=== PATIENT | female | born 1990 | race Caucasian/White ===

== ENCOUNTER 2018-10-12 01:36 | Emergency (ER) | payer SELFPAY ==
[2018-10-12 02:16] LABS: Basophils % (Auto) 0.3 % (0.0-1.8); Eosinophils # (Auto) 0.1 K/mm3 (0.0-0.4); Lymphocytes # (Auto) 1.3 K/mm3 (1.2-5.4); Lymphocytes % (Auto) 12.8 % (13.4-35.0); Mean Corpuscular HGB Conc 37 % (30-34); Mean Corpuscular Volume 91 fl (79-97); Monocytes # (Auto) 0.6 K/mm3 (0.0-0.8); Monocytes % (Auto) 6.1 % (0.0-7.3); Platelet Count 197 K/mm3 (140-440); Red Blood Count 4.09 M/mm3 (3.65-5.03); Red Cell Distribution Width 13.4 % (13.2-15.2)
[2018-10-12 02:20] LABS: Hematocrit 37.2 % (30.3-42.9); Hemoglobin 13.7 gm/dl (10.1-14.3)
[2018-10-12 02:33] LABS: Bacteria,Urine 1+ /HPF (Negative); Bilirubin,Urine NEG (Negative); Blood,Urine LG (Negative); Color,Urine Yellow (Yellow); Mucus,Urine FEW /HPF; RBC,Urine > 182.0 /HPF (0.0-6.0); Urobilinogen,Urine < 2.0 mg/dL (<2.0)
[2018-10-12] MEDS ORDERED: TYLENOL PO ONE (02:52)
[2018-10-12] MEDS ORDERED: BACTRIM DS PO ONE (02:54)
--- NOTE | 2018-10-12 02:54 | Ultrasound Report ---
US OB <= 14 weeks fetus, US OB transvaginal INDICATION / CLINICAL INFORMATION: vaginal bleeding. COMPARISON: None available. FINDINGS: A single live fetus of approximately 11 weeks 1 day gestational age is seen in the uterus. A small soemrs bchorionic bleed is seen in the placenta. heart rate is 170. A small left-sided ovarian cyst is present. The right ovary is normal. A small amount of fluid is seen in the cervix. IMPRESSION: Single live fetus of approximately 11 weeks 1 day gestational age in the uterus with heart rate 170. A small subchorionic hemorrhage is seen. There is some fluid seen in the cervix. A small left o varian cyst is present. Signer Name: Josep Campo MD FACR Signed: 10/12/2018 2:50 AM Workstation Name: [id number]
--- NOTE | 2018-10-12 02:54 | Ultrasound Report ---
US OB <= 14 weeks fetus, US OB transvaginal INDICATION / CLINICAL INFORMATION: vaginal bleeding. COMPARISON: None available. FINDINGS: A single live fetus of approximately 11 weeks 1 day gestational age is seen in the uterus. A small somers bchorionic bleed is seen in the placenta. heart rate is 170. A small left-sided ovarian cyst is present. The right ovary is normal. A small amount of fluid is seen in the cervix. IMPRESSION: Single live fetus of approximately 11 weeks 1 day gestational age in the uterus with heart rate 170. A small subchorionic hemorrhage is seen. There is some fluid seen in the cervix. A small left o varian cyst is present. Signer Name: Josep Campo MD FACR Signed: 10/12/2018 2:50 AM Workstation Name: [id number]
--- NOTE | 2018-10-12 03:03 | Emergency Department Report ---
ED Female HPI - General Chief complaint: Vaginal Bleeding Stated complaint: 10 WEEKS PREG/BLEEDING/ABDOMINAL PAIN Time Seen by Provider: 10/12/18 02:40 Source: patient Mode of arrival: Ambulatory Limitations: No Limitations - History of Present Illness Initial comments: This is a 27-year-old 003 presents to ED complaining of vaginal bleeding started today. Patient also complains of lower pelvic cramping that started 2 days ago. Patient states that she is followed by [facility] for this . Patient states that vaginal bleed is likely and she also has been expensive pain with urination and some hematuria. She denies fevers or chills/nausea vomiting MD Complaint: vaginal bleeding, dysuria - Related Data Previous Rx's Medication Instructions Recorded Last Taken Type Ferrous Sulfate [Feosol 325 MG tab] 325 mg PO BID #60 tablet 12/27/15 Unknown Rx Ibuprofen [Motrin 800 MG tab] 800 mg PO Q8HR PRN #30 tablet 12/27/15 Unknown Rx oxyCODONE /ACETAMINOPHEN [Percocet 1 tab PO Q6HR PRN #30 tablet 12/27/15 Unknown Rx 5/325] Acetaminophen [Acetaminophen TAB] 675 mg PO TID #40 tablet 10/12/18 Unknown Rx Nitrofurantoin Jasper/M-Cryst 100 mg PO Q12HR #14 capsule 10/12/18 Unknown Rx [Macrobid CAP] Allergies Allergy/AdvReac Type Severity Reaction Status Date / Time Penicillins Allergy Unknown Verified 03/27/15 14:41 ED Review of Systems ROS: Stated complaint: 10 WEEKS PREG/BLEEDING/ABDOMINAL PAIN Other details as noted in HPI ED Past Medical Hx - Past Medical History Previous Medical History?: Yes Hx Hypertension: No Hx Congestive Heart Failure: No Hx Diabetes: No Hx Deep Vein Thrombosis: No Hx Renal Disease: Yes (kidney stones on L side) Hx Sickle Cell Disease: No Hx Seizures: Yes (once in childhood with pcn) Hx Kidney Stones: Yes Hx Asthma: No Hx COPD: No Hx HIV: No - Surgical History Past Surgical History?: Yes Additional Surgical History: x2 - Social History Smoking Status: Never Smoker Substance Use Type: None - Medications Home Medications: Home Medications Medication Instructions Recorded Confirmed Last Taken Type Ferrous Sulfate [Feosol 325 MG tab] 325 mg PO BID #60 tablet 12/27/15 Unknown Rx Ibuprofen [Motrin 800 MG tab] 800 mg PO Q8HR PRN #30 tablet 12/27/15 Unknown Rx oxyCODONE /ACETAMINOPHEN [Percocet 1 tab PO Q6HR PRN #30 tablet 12/27/15 Unknown Rx 5/325] Acetaminophen [Acetaminophen TAB] 675 mg PO TID #40 tablet 10/12/18 Unknown Rx Nitrofurantoin [place]asper/M-Cryst 100 mg PO Q12HR #14 capsule 10/12/18 Unknown Rx [Macrobid CAP] ED Physical Exam - General Limitations: No Limitations General appearance: alert, in no apparent distress - Head Head exam: Present: atraumatic, normocephalic - Eye Eye exam: Present: normal appearance - ENT ENT exam: Present: mucous membranes moist - Neck Neck exam: Present: normal inspection - Respiratory Respiratory exam: Present: normal lung sounds bilaterally. Absent: respiratory distress - Cardiovascular Cardiovascular Exam: Present: regular rate, normal rhythm. Absent: systolic mur mur, diastolic murmur, rubs, gallop - GI/Abdominal GI/Abdominal exam: Present: soft, normal bowel sounds - Extremities Exam Extremities exam: Present: normal inspection - Back Exam Back exam: Present: normal inspection - Neurological Exam Neurological exam: Present: alert, oriented X3 - Psychiatric Psychiatric exam: Present: normal affect, normal mood - Skin Skin exam: Present: warm, dry, intact, normal color. Absent: rash ED Course Vital Signs 10/12/18 10/12/18 10/12/18 01:39 02:01 04:03 Temperature 98.3 F 98.7 F Pulse Rate 77 74 Respiratory 18 18 18 Rate Blood Pressure 123/79 Blood Pressure 104/70 [Right] O2 Sat by Pulse 100 100 Oximetry ED Medical Decision Making - Lab Data Result diagrams: 10/12/18 02:06 Laboratory Last Values WBC 10.5 K/mm3 (4.5-11.0) 10/12/18 02:06 RBC 4.09 M/mm3 (3.65-5.03) 10/12/18 02:06 Hgb 13.7 gm/dl (10.1-14.3) 10/12/18 02:06 Hct 37.2 % (30.3-42.9) 10/12/18 02:06 MCV 91 fl (79-97) 10/12/18 02:06 MCH 33 pg (28-32) H 10/12/18 02:06 MCHC 37 % (30-34) H 10/12/18 02:06 RDW 13.4 % (13.2-15.2) 10/12/18 02:06 Plt Count 197 K/mm3 (140-440) 10/12/18 02:06 Lymph % (Auto) 12.8 % (13.4-35.0) L 10/12/18 02:06 [place] % (Auto) 6.1 % (0.0-7.3) 10/12/18 02:06 Eos % (Auto) 1.0 % (0.0-4.3) 10/12/18 02:06 Baso % (Auto) 0.3 % (0.0-1.8) 10/12/18 02:06 Lymph # 1.3 K/mm3 (1.2-5.4) 10/12/18 02:06 [place]asper # 0.6 K/mm3 (0.0-0.8) 10/12/18 02:06 Eos # 0.1 K/mm3 (0.0-0.4) 10/12/18 02:06 Baso # 0.0 K/mm3 (0.0-0.1) 10/12/18 02:06 Seg Neutrophils % 79.8 % (40.0-70.0) H 10/12/18 02:06 Seg Neutrophils # 8.4 K/mm3 (1.8-7.7) H 10/12/18 02:06 HCG, Quant 46748 mIU/mL (0-4) H 10/12/18 02:07 Yellow (Yellow) 10/12/18 01:58 Slightly-cloudy (Clear) 10/12/18 01:58 7.0 (5.0-7.0) 10/12/18 01:58 Ur Specific [place] 1.014 (1.003-1.030) 10/12/18 01:58 100 mg/dl mg/dL (Negative) 10/12/18 01:58 Neg mg/dL (Negative) 10/12/18 01:58 Neg mg/dL (Negative) 10/12/18 01:58 Lg (Negative) 10/12/18 01:58 Neg (Negative) 10/12/18 01:58 Neg (Negative) 10/12/18 01:58 < 2.0 mg/dL (<2.0) 10/12/18 01:58 Ur Leukocyte Esterase Mod (Negative) 10/12/18 01:58 89.0 /HPF (0.0-6.0) H 10/12/18 01:58 > 182.0 /HPF (0.0-6.0) 10/12/18 01:58 1+ /HPF (Negative) 10/12/18 01:58 2+ /HPF 10/12/18 01:58 Few /HPF 10/12/18 01:58 Blood Type O POSITIVE 10/12/18 02:06 - Radiology Data Radiology results: report reviewed, image reviewed vaginal bleeding. COMPARISON: None available. FINDINGS: A single live fetus of approximately 11 weeks 1 day gestational age is seen in the uterus. A small subchorionic bleed is seen in the placenta. heart rate is 170. A small left-sided ovarian cyst is present. The right ovary is normal. A small amount of fluid is seen in the cervix. IMPRESSION: Single live fetus of approximately 11 weeks 1 day gestational age in the uterus with heart rate 170. A small subchorionic hemorrhage is seen. There is some fluid seen in the cervix. A small left ovarian cyst is present. Signer Name: Josep Campo MD FACR Signed: 10/12/2018 2:50 AM Workstation Name: [id number] Transcribed By: MS Dictated By: Josep Campo MD Electronically Authenticated By: Josep Campo MD Signed Date/Time: 10/12/18 0250 - Medical Decision Making 30-year-old female presents to ED with threatened /vaginal bleeding and ED course: Pt received ultra sound, CBC, urinalysis, test and quantitative ED All labs within normal limits, urinalysis positive for UTI Patient states she has PULMONARY SPECIALIST appointment coming up with [facility] Ultrasound shows twin gestation at 11 weeks with heart rate of 1 70 bpm, see the report above. Patient also has a subchorionic hemorrhage. I discussed the patient bleeding may resolve on its own but it bleeding worsens to return to ED immediately Vital signs normalized patient is in no acute distress. I discussed with the patient if follow-up with her PULMONARY SPECIALIST in 2-3 days.. I discussed all labs and ultrasound findings with the patient. I discussed with the patient that he if bleeding worsens or new symptoms develop to return to ED immediately Critical care attestation.: If time is entered above; I have spent that time in minutes in the direct care of this critically ill patient, excluding procedure time. ED Disposition Clinical Impression: Vaginal bleeding, Threatened , UTI (urinary tract infection) Disposition: TO HOME OR SELFCARE Is pt being admited?: No Does the pt Need Aspirin: No Condition: Stable Instructions: Threatened Miscarriage (ED), (ED), Urinary Tract Infection in Women (ED) Additional Instructions: Make sure to follow up with the PULMONARY SPECIALIST as discussed. Take all your medications as you've been prescribed. If you have any worsening symptoms or develop new symptoms please return to ED immediately. Prescriptions: Acetaminophen [Acetaminophen TAB] 675 mg PO TID #40 tablet Nitrofurantoin Jasper/M-Cryst [Macrobid CAP] 100 mg PO Q12HR #14 capsule Referrals: JESUS FOLEY MD [Primary Care Provider] - 3-5 Days Forms: Accompanied Note, Work/School Release Form(ED) Time of Disposition: 03:47
[2018-10-12 04:03] VITALS: BP 104/70
== END 2018-10-12 04:04 | disposition home or self-care (01) ==
LOC: ED 01:36
DX: O20.0 Threatened abortion (principal); O23.41 Unspecified infection of urinary tract in pregnancy, first trimester; Z87.442 Personal history of urinary calculi; Z79.899 Other long term (current) drug therapy; Z88.0 Allergy status to penicillin; Z3A.11 11 weeks gestation of pregnancy
CPT/HCPCS: 36415; 76801; 76817; 81001; 84702; 85025; 86900; 86901; 87076; 87086; 87186

== ENCOUNTER 2019-02-18 13:02 | Outpatient (CLI) | payer SELFPAY ==
[2019-02-18 13:29] VITALS: BP 128/76
[2019-02-18] MEDS ORDERED: LACTATED RINGERS 1,000 ML IV SCH (14:00)
[2019-02-18 14:16] LABS: Bacteria,Urine 3+ /HPF (Negative); Bilirubin,Urine NEG (Negative); Blood,Urine NEG (Negative); Color,Urine Yellow (Yellow); Mucus,Urine 3+ /HPF; Protein,Urine <15 mg/dL mg/dL (Negative)
[2019-02-18] MEDS ORDERED: ACETAMINOPHEN 500 MG TAB PO ONE (14:29)
== END 2019-02-18 15:30 | disposition home or self-care (01) ==
LOC: TRG 13:02
PROVIDERS: ATTEND Obstetrics & Gynecology
DX: O47.02 False labor before 37 completed weeks of gestation, second trimester (principal); Z3A.29 29 weeks gestation of pregnancy
CPT/HCPCS: 59025; 81001; 87076; 87086; 87186; 87400

== ENCOUNTER 2019-04-29 09:01 | Inpatient (IN) | payer SELFPAY ==
[2019-04-29] MEDS ORDERED: FAMOTIDINE 20 MG/2 ML INJ IV SCH (10:00)
[2019-04-29] MEDS ORDERED: METOCLOPRAMIDE 10 MG/2 ML INJ IV SCH (10:00)
[2019-04-29] MEDS: LACTATED RINGERS 1,000 ML IV SCH ×2 (10:00→10:55)
[2019-04-29] MEDS ORDERED: BICITRA ORAL LIQD 30ML PO SCH (10:00)
[2019-04-29 10:30] LABS: Basophils % (Auto) 0.2 % (0.0-1.8); Eosinophils % (Auto) 0.5 % (0.0-4.3); Hematocrit 34.3 % (30.3-42.9); Hemoglobin 11.6 gm/dl (10.1-14.3); Lymphocytes # (Auto) 1.3 K/mm3 (1.2-5.4); Lymphocytes % (Auto) 14.4 % (13.4-35.0); Mean Corpuscular HGB Conc 34 % (30-34); Mean Corpuscular Volume 90 fl (79-97); Monocytes # (Auto) 0.8 K/mm3 (0.0-0.8); Monocytes % (Auto) 8.4 % (0.0-7.3); Platelet Count 203 K/mm3 (140-440); Red Blood Count 3.81 M/mm3 (3.65-5.03); Red Cell Distribution Width 14.7 % (13.2-15.2)
[2019-04-29] MEDS ORDERED: OXYTOCIN 20 UNIT/1000ML DRIP 20 UNITS/1,000 ML BAG IV SCH ×2 (10:30→16:13)
[2019-04-29] MEDS ORDERED: GENTAMICIN 400 MG in SODIUM CHLORIDE 0.9% 100 ML IV SCH (10:30)
[2019-04-29] MEDS ORDERED: ONDANSETRON 4 MG/2 ML INJ ONE (11:16)
[2019-04-29] MEDS ORDERED: SODIUM CHLORIDE P/F VIAL 10 ML 10 ML ONE (11:18)
[2019-04-29] MEDS ORDERED: OXYTOCIN 10 UNIT/1 ML INJ ONE (11:18)
[2019-04-29] MEDS ORDERED: BUPIVACAINE/PF (0.5%) 5 MG/1 ML 30 ML VIAL INFILTRATI ONE (11:21)
[2019-04-29] MEDS ORDERED: SODIUM CHLORIDE 0.9% 500 ML 500 ML ONE (11:26)
--- NOTE | 2019-04-29 12:09 | History and Physical Report ---
History of Present Illness Date of examination: 04/29/19 Date of admission: 04/29/19 09:01 Chief complaint: Here for a 4th History of present illness: , all cesareans. NITIN 05/05/2019 Past History Past Medical History: kidney stones Past Surgical History: section - Obstetrical History Expected Date of Delivery: 05/05/19 Actual Gestation: 39 Week(s) 1 Day(s) : 4 Para: 3 Medications and Allergies Allergies Allergy/AdvReac Type Severity Reaction Status Date / Time Penicillins AdvReac Severe Rash Verified 02/18/19 13:29 Home Medications Medication Instructions Recorded Confirmed Last Taken Type Ferrous Sulfate [Feosol 325 MG tab] 325 mg PO BID #60 tablet 12/27/15 04/29/19 04/26/19 21:00 Rx Active Meds: Active Medications Citric Acid/Sodium Citrate (Bicitra) 30 ml PO ONCE BERNARDINO Stop: 04/29/19 15:00 Last Admin: 04/29/19 11:24 Dose: 30 ml Documented by: Famotidine (Pepcid) 20 mg IV ONCE BERNARDINO Stop: 04/29/19 15:00 Last Admin: 04/29/19 11:24 Dose: 20 mg Documented by: Oxytocin/Sodium Chloride (Pitocin/Ns 20 Unit/1000ml Drip) 20 units in 1,000 mls @ 0 mls/hr IV TITR BERNARDINO Lactated Ringer's (Lactated Ringers) 1,000 mls @ 2,250 mls/hr IV PREOP BERNARDINO Stop: 04/30/19 10:27 Last Admin: 04/29/19 10:55 Dose: 2,250 mls/hr Documented by: Gentamicin Sulfate 400 mg/ (Sodium Chloride) 110 mls @ 165 mls/hr IV PREOP BERNARDINO; Protocol Stop: 04/29/19 16:30 Last Admin: 04/29/19 10:59 Dose: 165 mls/hr Documented by: Clindamycin HCl (Cleocin 900 Mg/50 Ml) 900 mg in 50 mls @ 100 mls/hr IV PREOP NR; Protocol Stop: 04/29/19 15:00 Last Admin: 04/29/19 11:29 Dose: 100 mls/hr Documented by: Metoclopramide HCl (Reglan) 10 mg IV ONCE BERNARDINO Stop: 04/29/19 16:00 Last Admin: 04/29/19 11:24 Dose: 10 mg Documented by: Review of Systems All systems: negative - Vital Signs Vital signs: Vital Signs Pulse BP 83 118/65 04/29/19 10:10 04/29/19 10:10 Temp Pulse Resp BP Pulse Ox 98.1 F 91 H 16 118/65 98 04/29/19 10:49 04/29/19 11:13 04/29/19 10:49 04/29/19 10:49 04/29/19 11:13 - Physical Exam Lungs: Positive: Normal air movement Abdomen: Positive: soft, distention. Negative: tenderness Uterus: Positive: enlarged - Obstetrical FHR: category 1 Uterine Contraction Pattern: Absent Results Result Diagrams: 04/29/19 09:35 Abnormal lab results 04/29/19 Range/Units 09:35 [place] % (Auto) 8.4 H (0.0-7.3) % Seg Neutrophils % 76.5 H (40.0-70.0) % All other labs normal. Assessment and Plan - Patient Problems (1) Term Current Visit: Yes Status: Acute (2) Previous delivery affecting Current Visit: Yes Status: Acute Plan to address problem: After informed consent, a 4th will be performed.
[2019-04-29] MEDS ORDERED: SODIUM CHLORIDE 0.9% IRR 1,500 ML BOTTLE IR ONE (13:01)
[2019-04-29] MEDS ORDERED: WATER FOR IRRIG STERILE 1,500 ML BOTTLE IR ONE (13:01)
--- NOTE | 2019-04-29 13:16 | Anesthesia Day of Surgery ---
Anesthesia Day of Surgery - Day of Surgery Patient Examined: Yes Patient H&P Reviewed: Yes Patient is NPO: Yes
--- NOTE | 2019-04-29 13:16 | Anesthesia Consultation ---
Anesthesia Consult and Med Hx Date of service: 04/29/19 - Airway Anesthetic Teeth Evaluation: Good ROM Head & Neck: Adequate Mental/Hyoid Distance: Adequate Mallampati Class: Class II Intubation Access Assessment: Probably Good - Pulmonary Exam CTA: Yes - Cardiac Exam Cardiac Exam: RRR - Pre-Operative Health Status ASA Pre-Surgery Classification: ASA2 Proposed Anesthetic Plan: Spinal - Pulmonary Hx Asthma: No COPD: No Hx Pneumonia: No - Cardiovascular System Hx Hypertension: No - Central Nervous System Hx Seizures: No Hx Psychiatric Problems: No - Endocrine Hx Renal Disease: Yes (kidney stones) Hx End Stage Renal Disease: No Hx Hypothyroidism: No Hx Hyperthyroidism: No - Hematic Hx Anemia: No Hx Sickle Cell Disease: No - Other Systems Hx Alcohol Use: No
[2019-04-29] MEDS ORDERED: KETOROLAC 30 MG/1 ML INJ ONE (13:25)
[2019-04-29] MEDS ORDERED: dexAMETHasone 20 MG/5 ML VIAL ONE (13:35)
[2019-04-29] MEDS ORDERED: SODIUM CHLORIDE 0.9% 100 ML ONE (13:44)
--- NOTE | 2019-04-29 14:17 | Operative Report ---
Operative Report Operative Report: Date of surgery: April 29, 2019 Preoperative diagnoses: Term , 3 previous sections Postoperative diagnoses: The same. Operation: Lower segment transverse delivery Surgeon:Diana Brady MD Instrument Repair Specialist: Terrence Guerra CRNA Anesthesia: Spinal block Estimated blood loss: 800 mL Complications: None Findings: There was a live baby girl and vertex presentation, weight was 6 pounds 13 ounces with Apgars 8/9. Both ovaries, fallopian tubes as well as uterus were all grossly normal. There was no peritoneal adhesions seen within the lower abdomen and pelvis. Procedure in detail: The patient was taken to the operating room and given a spinal block. Patient was placed in the straight supine position and a Carlson catheter was inserted. The patient was prepped in the abdomen. The drapes were placed. A timeout was done. With the go ahead from the pad extraction tender, a Pfannenstiel incision was made. This incision was carried across the subcutaneous layer to the fascia which was also divided transversely. The recti abdominis muscle flaps were stripped from the fascia using a combination of blunt and sharp dissections. The muscles were in the midline to gain access to the anterior parietal peritoneum which was divided after excluding any underlying viscera. The access to the peritoneal cavity was then widened by manual stretching. The bladder blade was applied. The utero vesicle peritoneal flap was divided transversely allowing the bladder to be displaced caudally. The uterine incision was placed in the lower segment transversely. The uterine incision was carried to the decidual layer. The uterine incision was extended on both sides using the bandage scissors. The amniotic sac was ruptured with clear fluid. The head was lifted out of the false maternal pelvis and delivered through the incision using fundal pressure. The airways were bulb suctioned beginning with the mouth. Continuing fundal pressure combined with traction on the mandibular processes of the jaw delivered the rest of the baby. The umbilical cord was double clamped and divided. The baby was carefully transferred to the pediatric team. The placenta was manually removed from the uterine cavity. The uterine cavity was explored and was empty of any placental remnants. The uterine incision was repaired in 2 layers with #1 Vicryl. The surgical line on the uterus was hemostatic. Blood and clots were cleared from the peritoneal cavity. The anterior parietal peritoneum was repaired with #1 Vicryl. The fascia was repaired with #1 Vicryl. The subcutaneous layer was made hemostatic using the Bovie before the skin was closed subcuticularly with 4-0 Vicryl. There were no complications. The estimated blood loss was 800 mL. All sponges and instrument counts were correct. Patient was safely transferred to the recovery room.
[2019-04-29] MEDS ORDERED: ONDANSETRON 4 MG/2 ML INJ IV PRN (16:13)
[2019-04-29] MEDS ORDERED: LANOLIN/ZINC/DIMETHICONE (LANSINOH) 7 GM TP PRN (16:13)
[2019-04-29] MEDS ORDERED: ACETAMINOPHEN 325 MG TAB PO PRN (16:13)
[2019-04-29] MEDS ORDERED: WITCH HAZEL/ GLYCERIN PAD TP PRN (16:13)
[2019-04-29] MEDS ORDERED: MORPHINE 4 MG/1 ML INJ IV PRN (16:13)
[2019-04-29] MEDS ORDERED: NALOXONE 0.4 MG/1 ML INJ IV PRN (16:13)
[2019-04-29] MEDS: CLINDAMYCIN 600 MG/50 mL 600 MG/50 ML BAG IV SCH (17:30)
[2019-04-29] MEDS: KETOROLAC 30 MG/1 ML INJ IV PRN (19:27)
[2019-04-30] MEDS: CLINDAMYCIN 600 MG/50 mL 600 MG/50 ML BAG IV SCH (00:30)
[2019-04-30 01:17] LABS: Hemoglobin 11.4 gm/dl (10.1-14.3)
[2019-04-30] MEDS: HYDROcodone/ACETAMINOPHEN 5-325 MG TAB PO PRN ×4 (01:19→23:34)
[2019-04-30] MEDS: FERROUS SULFATE 325 MG TAB PO SCH ×3 (06:36→23:34)
--- NOTE | 2019-04-30 10:40 | Progress Note ---
Assessment and Plan - Patient Problems (1) Status post repeat low transverse section Current Visit: No Status: Acute Plan to address problem: Continue routine PP orders Keep incision clean and dry, remove drsg on POD#2 Anticipate d/c home in 24-48 hrs. Subjective - Subjective Date of service: 04/30/19 Principal diagnosis: S/P Repeat LTCS; POD#1 Interval history: See admission H & P; OB operative note and PP progress notes Patient reports: appetite normal, voiding normally, pain well controlled (with medications), flatus, ambulating normally [employer]: doing well, bottle feeding (and ) Objective - Vital Signs Latest vital signs: Vital Signs Temp Pulse Resp BP BP Pulse Ox 04/30/19 08:44 97.6 F 18 103/63 04/30/19 06:37 18 04/30/19 04:46 98.0 F 78 18 91/56 94 04/30/19 01:19 18 04/30/19 01:15 97.9 F 80 18 107/64 94 04/29/19 21:08 98.0 F 73 18 103/61 93 04/29/19 19:27 20 04/29/19 16:20 97.9 F 62 20 101/55 96 04/29/19 15:18 97.5 F L 58 L 14 96/56 96 04/29/19 15:01 56 L 14 96/57 96 04/29/19 14:51 56 L 12 97/57 97 04/29/19 14:30 72 16 94/50 97 04/29/19 14:25 67 16 99/52 97 04/29/19 14:20 69 17 99/50 97 04/29/19 14:15 74 15 92/45 97 04/29/19 14:12 97.6 F 04/29/19 11:13 91 H 98 04/29/19 11:08 93 H 99 04/29/19 11:03 88 98 04/29/19 10:58 88 98 04/29/19 10:53 91 H 97 04/29/19 10:49 98.1 F 96 H 16 118/65 98 04/29/19 10:48 87 98 04/29/19 10:43 87 98 04/29/19 10:38 93 H 98 Intake and Output 04/29/19 04/30/19 04/30/19 23:59 07:59 15:59 Intake Total 50 120 Output Total 2900 1500 Balance -4209 -9790 Intake: IV 50 CLEOCIN 600 MG/50 mL 600 50 mg In 50 ml @ 100 mls/hr IV Q8H COUNT INCLUDES THE [facility] Rx#:[id number] Oral 120 Output: Urine 2900 1500 Indwelling Catheter 1000 Uretheral (Carlson) 2900 500 Other: Total, Intake Amount 120 Total, Output Amount 1000 - Exam Breasts: Present: normal Cardiovascular: Present: Regular rate Lungs: Present: Normal air movement Abdomen: Present: soft, tenderness Uterus: Present: firm, fundal height below umbilicus (U-1) Extremities: Present: normal Deep Tendon Reflex Grade: Normal +2 Incision: Present: dressed (no shadow drainage or bleeding noted)
[2019-04-30] MEDS: KETOROLAC 30 MG/1 ML INJ IV PRN (11:09)
[2019-04-30] MEDS: PRENATAL VIT27-FE FUMARATE-FOLIC ACID VIT TAB PO SCH (11:09)
[2019-05-01] MEDS: IBUPROFEN 800 MG TAB PO PRN ×3 (06:15→23:30)
--- NOTE | 2019-05-01 10:02 | Progress Note ---
Assessment and Plan A: /postop day 2 S/P repeat low transverse section. P: Continue current management. Encouraged ambulation. Subjective - Subjective Date of service: 05/01/19 Principal diagnosis: S/P Repeat LTCS; POD#2 Interval history: Pospartum/postop day 2 S/P repeat low transverse section. Doing well. Tolerating a regular diet and passing gas. Voiding without difficulty. Ambulating well. Patient denies headache, chest pain, cough, shortness of breath, nausea or vomiting, abdominal pain, leg pain, or heavy vaginal bleeding. Patient reports: appetite normal, voiding normally, pain well controlled, flatus, ambulating normally, no dizzy ambulation, no nauseated [place]: doing well Objective - Vital Signs Latest vital signs: Vital Signs Temp Pulse Resp BP BP Pulse Ox 05/01/19 09:41 97.9 F 75 20 106/66 04/30/19 22:55 98.5 F 78 20 97/56 95 04/30/19 17:37 20 04/30/19 16:15 98.7 F 80 20 94/50 96 04/30/19 13:40 97.9 F 97 H 18 102/59 95 04/30/19 11:09 20 Intake and Output 04/30/19 05/01/19 05/01/19 23:59 07:59 15:59 Intake Total 360 360 120 Balance 360 360 120 Intake: Oral 360 120 Intake, Free Water 360 Other: Total, Intake Amount 120 120 # Voids Void 1 2 1 - Exam Cardiovascular: Present: Regular rate, Normal S1, Normal S2 Lungs: Present: Clear to auscultation Abdomen: Present: normal appearance, soft, normal bowel sounds. Absent: distention, tenderness, guarding, rigidity Uterus: Present: normal, firm, fundal height below umbilicus. Absent: bogginess, tenderness Extremities: Present: normal. Absent: tenderness Incision: Present: normal, dry, dressed
[2019-05-01] MEDS: FERROUS SULFATE 325 MG TAB PO SCH ×2 (10:30→23:29)
[2019-05-01] MEDS: PRENATAL VIT27-FE FUMARATE-FOLIC ACID VIT TAB PO SCH (10:30)
[2019-05-02] MEDS: FERROUS SULFATE 325 MG TAB PO SCH (08:00)
[2019-05-02] MEDS: IBUPROFEN 800 MG TAB PO PRN ×2 (08:00→17:15)
[2019-05-02] MEDS: PRENATAL VIT27-FE FUMARATE-FOLIC ACID VIT TAB PO SCH (08:05)
[2019-05-02] MEDS ORDERED: MAGNESIUM HYDROXIDE (MOM) ORAL LIQD UDC PO PRN (09:54)
--- NOTE | 2019-05-02 10:13 | Progress Note ---
Assessment and Plan A: /postop day 3 S/P repeat LTCS. Paresthesias left lower extremity. P: Will get anesthesia to see patient. Consulted with Dr. Squires re: this patient and her complaints about paresthesias of LLE. Subjective - Subjective Date of service: 05/02/19 Principal diagnosis: S/P Repeat LTCS; POD#3 Interval history: Pospartum/postop day 3 S/P repeat low transverse section. Tolerating a regular diet and passing gas. Voiding without difficulty. Ambulating well. Patient reports paresthesias (numbness, tingling, sensation of being "heavy" and "asleep" feeling of left leg and left foot (from knee to toes on left LE). Patient states she first noticed these symptoms yesterday evening while walking. States she now feels them even at rest as she is lying in bed. Patient denies headache, chest pain, cough, shortness of breath, nausea or vomiting, abdominal pain, leg pain, or heavy vaginal bleeding. Patient reports: appetite normal, voiding normally, pain well controlled, f latus, ambulating normally, no dizzy ambulation, no bowel movement, no nauseated : doing well Objective - Vital Signs Latest vital signs: Vital Signs Temp Pulse Resp BP BP Pulse Ox 05/02/19 08:10 98.2 F 74 20 100/62 05/02/19 00:27 97.7 F 76 16 99/51 96 05/01/19 15:45 98.2 F 82 20 118/67 Intake and Output 05/01/19 05/02/19 05/02/19 23:59 07:59 15:59 Intake Total 240 100 120 Balance 240 100 120 Intake: Oral 120 Intake, Free Water 240 100 Other: Total, Intake Amount 120 # Voids Void 2 1 1 - Exam Narrative Exam: Alert and oriented, NAD, speech clear and understandable. Cardiovascular: Present: Regular rate, Normal S1, Normal S2, No murmurs Lungs: Present: Clear to auscultation Abdomen: Present: normal appearance, soft, normal bowel sounds. Absent: distention, tenderness, guarding, rigidity Uterus: Present: normal, firm, fundal height below umbilicus. Absent: bogginess, tenderness Extremities: Present: edema (mild edema of ankles/feet bilaterally). Absent: tenderness Incision: Present: normal, dry, intact
[2019-05-02] MEDS: HYDROcodone/ACETAMINOPHEN 5-325 MG TAB PO PRN (10:45)
--- NOTE | 2019-05-02 15:56 | Post Anesthesia Evaluation ---
- Post Anesthesia Evaluation Patient Participated: Yes Airway Patent: Yes Stable Respiratory Function: Yes Nausea/Vomiting: No Temp > 96.8F: Yes Pain Manageable: Yes Adequeate Hydration: Yes Anesthesia Complications: Yes (see comments) Block Receding Appropriately: Yes Patient on Ventilator: No Other Comments: Post -op day 3 patient c/o continues numbness, tingling sensation with heaviness and sleepy feeling from kness to toes of left leg. Noticed these symptoms yesterday evening while walking. Now feels them at rest. Admits to having Sciatic nerve pain during this however pain was in upper leg. Physical Exam positive for plantar flexion weakness and difficulty with movement of big toe of left leg. Subarachnoid Block was performed initialy for her repeat csection with partial right side block. Block was converted to Combine Spinal Epidural with adequit block. She tolerated anesthesia well. Continue to monitor and Neurology consult recommended. Shanika Beltran, Educational Diagnostician will call for Neurology consult.
[2019-05-03] MEDS: IBUPROFEN 800 MG TAB PO PRN ×2 (00:23→10:45)
[2019-05-03] MEDS: FERROUS SULFATE 325 MG TAB PO SCH ×3 (10:00→21:56)
--- NOTE | 2019-05-03 11:15 | Progress Note ---
Assessment and Plan A: POD # 4 Left Leg Numbness P: Follow Routine PostOp Orders Awaiting Neurololgy Consult Subjective - Subjective Date of service: 05/03/19 Principal diagnosis: S/P Repeat LTCS; POD#3 Patient reports: appetite normal, voiding normally, pain well controlled, flatus, ambulating normally, other (Continues to complian of left leg numbness and limited ability to use left leg) : doing well, bottle feeding (and ) Objective - Vital Signs Latest vital signs: Vital Signs Temp Pulse Resp BP BP Pulse Ox 05/03/19 08:13 98.2 F 75 20 106/62 95 05/02/19 23:50 98.0 F 79 20 107/70 97 05/02/19 16:10 97.7 F 77 20 101/63 Intake and Output 05/02/19 05/03/19 05/03/19 22:59 06:59 14:59 Intake Total 120 240 Balance 120 240 Intake: Oral 120 240 Other: Total, Intake Amount 120 240 # Voids Indwelling Catheter 1 Void 1 1 1 - Exam Breasts: Present: normal Cardiovascular: Present: Regular rate Lungs: Present: Clear to auscultation, Normal air movement Abdomen: Present: normal appearance, soft, normal bowel sounds Uterus: Present: normal, firm, fundal height below umbilicus Extremities: Present: normal Incision: Present: normal, dry, intact
[2019-05-03] MEDS: HYDROcodone/ACETAMINOPHEN 5-325 MG TAB PO PRN ×2 (12:12→19:36)
--- NOTE | 2019-05-03 13:43 | Consultation ---
History of Present Illness Consult date: 05/03/19 Reason for Consult: Left leg numbness and weakness Chief complaint: Left leg numbness and weakness History of present illness: Patient is a 28-year-old woman. She presented on April 29 for section. This is her fourth child. section was performed successfully on April 29. The following day, the patient noticed left leg numbness and weakness. The symptoms have persisted since then, and have not improved. She complains of weakness in the distal portion of the left leg, as well as numbness from the ankle and below. Also complains of mild pain with hip flexion on the left side. Due to the symptoms, she finds it somewhat difficult to walk. Past History Past Medical History: No medical history, other Past Surgical History: Social history: no significant social history Family history: no significant family history Medications and Allergies Allergies Allergy/AdvReac Type Severity Reaction Status Date / Time Penicillins AdvReac Severe Rash Verified 02/18/19 13:29 Home Medications Medication Instructions Recorded Confirmed Last Taken Type Ferrous Sulfate [Feosol 325 MG tab] 325 mg PO BID #60 tablet 12/27/15 04/29/19 04/26/19 21:00 Rx HYDROcodone/APAP 5-325 [[place] 1 - 2 each PO Q4HR PRN #30 tablet 04/29/19 Unknown Rx 5/325] Active Meds: Active Medications Acetaminophen (Tylenol) 650 mg PO Q4H PRN PRN Reason: Fever >100.5/DEMPSEY Acetaminophen/Hydrocodone Bitart ([place] 5/325) 1 each PO Q6H PRN PRN Reason: Pain, Moderate (4-6) Last Admin: 05/03/19 12:12 Dose: 1 each Documented by: Ferrous Sulfate (Feosol) 325 mg PO BID [facility] Last Admin: 05/03/19 12:14 Dose: 325 mg Documented by: Ferrous Sulfate (Feosol) 325 mg PO QDAY [facility] Last Admin: 05/02/19 08:00 Dose: 325 mg Documented by: Oxytocin/Sodium Chloride (Pitocin/Ns 20 Unit/1000ml Drip) 20 units in 1,000 mls @ 250 mls/hr IV DIRECT BERNARDINO Ibuprofen (Ibuprofen) 800 mg PO Q6H PRN PRN Reason: Pain, Mild (1-3) Last Admin: 05/03/19 10:45 Dose: 800 mg Documented by: Ketorolac Tromethamine (Toradol) 30 mg IV Q6H PRN PRN Reason: Pain, Moderate (4-6) Stop: 05/04/19 16:12 Last Admin: 04/30/19 11:09 Dose: 30 mg Documented by: Magnesium Hydroxide (Milk Of Magnesia) 30 ml PO HS PRN PRN Reason: Constipation Morphine Sulfate (Morphine) 4 mg IV Q4H PRN PRN Reason: Pain , Severe (7-10) Multi-Ingredient Ointment (Lansinoh) 1 applic TP PRN PRN PRN Reason: dryness/cracking Multivitamins/Iron/Calcium ( Vitamin) 1 each PO QDAY BERNARDINO Last Admin: 05/02/19 08:05 Dose: 1 each Documented by: Naloxone HCl (Naloxone) 0.1 mg IV Q2MIN PRN PRN Reason: Res Rate </= 8 or 02 SAT < 92% Ondansetron HCl (Zofran) 4 mg IV Q8H PRN PRN Reason: Nausea And Vomiting Witch Chhaya/Glycerin (Tucks Pad) 1 each TP PRN PRN PRN Reason: Hemorrhoids/cleansing/soothing Review of Systems All systems: negative Neurological: weakness, numbness Physical Examination - Vital Signs Vital Signs: Vital Signs Pulse BP 83 118/65 04/29/19 10:10 04/29/19 10:10 - Physical Exam Narrative exam: Patient is alert, awake, oriented x4, follows complex commands. No dysarthria or aphasia noted. PERRL, EOMI, VFF, tongue midline, bilaterally intact to LT, no facial weakness noted. 5/5 strength in right upper extremity/right lower extremity/left upper extremity, left lower extremity: Hip extensors 3/5 noted to be pain limited, hip flexors 5/5, knee flexors 3/5, knee extensors 5/5, ankle flexors 1/5, ankle extensors 1/5, toe flexors and extensors 1/5. Decreased sensations in the left lower extremity from the ankle downwards. Bilaterally intact to FTN and HTS. 3+ reflexes in left patellar, otherwise 2+ throughout. - Constitutional General appearance: comfortable - EENT EENT: Present: ATNC, PERRL, hearing intact, vision intact - Respiratory Respiratory: Present: lungs clear, normal breath sounds - Cardiovascular Cardiovascular: Present: regular rate, normal S1, normal S2 Extremities: Present: no clubbing, cyanosis, no inflammation - Gastrointestinal Gastrointestinal: Present: normoactive bowel sounds, soft, non-tender - Integumentary Integumentary: Present: normal - Musculoskeletal Musculoskeletal: Present: normal range of motion - Psychiatric Psychiatric: Present: mood/affect appropriate Results - Laboratory Findings CBC and BMP: 04/30/19 00:54 Abnormal Lab Findings: Abnormal Labs 04/29/19 09:35 [place] % (Auto) 8.4 H Seg Neutrophils % 76.5 H Assessment and Plan Patient is a 28-year-old woman with no significant PMH, presented on April 29, 2019 for a . Postoperatively, the patient has left lower extremity numbness and weakness. According the patient's clinical findings, it is possible that the patient has lumbosacral plexus injury, given that there is paresthesias/numbness in the distal lower extremity as well as weakness noted in the hip extensors, knee flexors, ankle flexors and extensors, and toe extensors and flexors. Alternatively, given that patient recently gave , which can predispose to hyper coagulable state and potential cerebral infarct, we will rule out stroke with MRI brain. Plan: 1 : Left lower extremity weakness/numbness -Likely due to lumbosacral plexus injury in perioperative setting. -Check MRI lumbar spine. -Check MRI brain to rule out stroke. -If no significant abnormality noted on MRI of the lumbar spine or brain, likely to be peripheral nerve injury. This would require further investigations by EMG/NCS, which would be done outpatient. -Recommend physical therapy. -Discussed option of starting medications such as gabapentin for neuropathic pain, however given that patient is breast-feeding, she stated that she would not like to start it at this time. -As patient noted to have mild swelling of left lower extremity, recommend further work-up of possible DVT per primary team. -We will continue to follow patient. Thank you for allowing me to take part in the care of this patient. Gasper Godinez MD Neurology
--- NOTE | 2019-05-03 19:09 | Magnetic Resonance Report ---
MR brain wo con INDICATION / CLINICAL INFORMATION: 28 years Female; Left leg weakness. TECHNIQUE: Multiplanar, multisequence MR images of the brain were obtained. COMPARISON: None available. FINDINGS: BRAIN / INTRACRANIAL CONTENTS: No acute hemorrhage, mass effect, midline shift, hydrocephalus, or acu te, large territorial infarct. No chronic infarct or atrophy. No significant white matter abnormality . CRANIOCERVICAL JUNCTION: No significant abnormality. VASCULAR FLOW-VOIDS: No significant abnormality. ORBITS: No significant abnormality of visualized orbits. SINUSES / MASTOIDS: Mild mucosal thickening seen in the ethmoids. Small air-fluid level seen in the l eft sphenoid sinus. Mucous retention cyst seen in the right maxillary antrum. ADDITIONAL FINDINGS: None. IMPRESSION: 1. No focal mass, hemorrhage, hydrocephalus, or acute ischemia. Signer Name: Kiko Garner MD, III Signed: 05/03/2019 7:05 PM Workstation Name: [id number]
--- NOTE | 2019-05-03 19:12 | Magnetic Resonance Report ---
MR lumbar spine wo con INDICATION / CLINICAL INFORMATION: 28 years Female; Left leg weakness. TECHNIQUE: Multisequence, multiplanar images of the lumbar spine were obtained. Motion artifact. COMPARISON: None available. FINDINGS: ALIGNMENT: Normal lumbar lordosis without significant scoliosis. VERTEBRAE:Grossly normal marrow signal and vertebral body height for age. VISUALIZED SPINAL CORD: No significant abnormality. Conus is grossly normal in appearance. INTERVERTEBRAL DISCS: Minimal disc desiccation seen at L4-5. [id number] ANALYSIS: L1-2: No significant abnormality. L2-3: No significant abnormality. L3-4: No significant abnormality. L4-5: Small, broad-based posterocentral disc protrusion. No significant sequela. L5-S1: No significant abnormality. PARASPINAL SOFT TISSUES: No significant abnormality. ADDITIONAL FINDINGS: None. IMPRESSION: 1. Mild degenerative changes of the lumbar spine as described above. No single, dominant cause for p atient's symptomatology appreciated. Signer Name: Kiko Garner MD, III Signed: 05/03/2019 7:07 PM Workstation Name: [id number]
[2019-05-04] MEDS: HYDROcodone/ACETAMINOPHEN 5-325 MG TAB PO PRN ×2 (04:14→17:31)
[2019-05-04] MEDS: FERROUS SULFATE 325 MG TAB PO SCH ×3 (09:01→22:30)
[2019-05-04] MEDS: PRENATAL VIT27-FE FUMARATE-FOLIC ACID VIT TAB PO SCH (09:01)
--- NOTE | 2019-05-04 10:13 | Progress Note ---
Assessment and Plan - Patient Problems (1) Status post repeat low transverse section Current Visit: No Status: Acute Plan to address problem: Continue routine PP orders Keep incision clean and dry Anticipate d/c home in 24-48 hrs pending PT recommendations (2) Numbness and tingling of left leg Current Visit: Yes Status: Acute Plan to address problem: Neurology consultation in place, signed off today Brain MRI negative Lumbar spine MRI negative LLE doppler to r/o DVT, negative Physical therapy consult Subjective - Subjective Date of service: 05/04/19 Principal diagnosis: S/P Repeat LTCS; POD#3 Interval history: See admission H & P; OB operative note; neurology consultation; MRI reports and PP progress notes Patient reports: appetite normal, voiding normally, pain well controlled, flatus, other (reports numbness in left leg continues making it difficult to ambulate) : doing well, bottle feeding (and ) Objective - Vital Signs Latest vital signs: Vital Signs Temp Pulse Resp BP BP Pulse Ox 05/04/19 08:08 97.7 F 70 18 105/66 95 05/04/19 00:30 98.8 F 71 16 101/74 05/03/19 16:35 97.7 F 77 20 108/65 98 Intake and Output 05/03/19 05/04/19 05/04/19 23:59 07:59 15:59 Intake Total 300 480 Output Total 1 Balance 300 479 Intake: Oral 480 Intake, Free Water 300 Output: Urine 1 Void 1 Other: Total, Intake Amount 240 Total, Output Amount 1 # Voids Indwelling Catheter 1 Void 1 1 # Bowel Movements 0 - Exam Breasts: Present: normal Cardiovascular: Present: Regular rate Lungs: Present: Normal air movement Abdomen: Present: soft, tenderness Uterus: Present: firm, fundal height below umbilicus (U-3) Extremities: Present: edema (LLE edema ) Incision: Present: dry, intact
--- NOTE | 2019-05-04 10:52 | Vascular Lab Report ---
DUPLEX DOPPLER LOWER EXTREMITY VEINS, LEFT INDICATION: r/o DVT. TECHNIQUE: Duplex doppler imaging was performed through the veins of the left lower extremity using venous compr ession and other maneuvers. COMPARISON: No relevant prior imaging study available. FINDINGS: Left Common femoral vein: Negative. Left Superficial femoral vein: Negative. Left Popliteal vein: Negative. Left Calf veins: Negative. Additional findings: None.. IMPRESSION: 1. No sonographic evidence for DVT in the left lower extremity. Signer Name: Victoriano Simon MD Signed: 05/04/2019 10:48 AM Workstation Name: [id number]
--- NOTE | 2019-05-04 14:08 | Progress Note ---
Assessment and Plan Patient is a 28-year-old woman with no significant PMH, presented on April 29, 2019 for a . Postoperatively, the patient has left lower extremity numbness and weakness. According the patient's clinical findings, it is possible that the patient has lumbosacral plexus injury, given that there is paresthesias/numbness in the distal lower extremity as well as weakness noted in the hip extensors, knee flexors, ankle flexors and extensors, and toe extensors and flexors. Alternatively, given that patient recently gave , which can predispose to hyper coagulable state and potential cerebral infarct, we will rule out stroke with MRI brain. Plan: 1 : Left lower extremity weakness/numbness -Likely due to lumbosacral plexus injury in perioperative setting. -MRI lumbar spine: No acute abnormality. -MRI brain: No acute abnormality. -As MRI brain and lumbar spine were unremarkable, more likely due to lumbosacral plexus or peripheral nerve injury. This would require further investigations by EMG/NCS, which would be done outpatient. -Recommend physical therapy. -Discussed option of starting medications such as gabapentin for neuropathic pain, however given that patient is breast-feeding, she stated that she would not like to start it at this time. - LE doppler: No DVT noted. -We will sign off. Please call with any questions. Thank you for allowing me to take part in the care of this patient. Gasper Godinez MD Neurology Subjective Date of service: 05/04/19 Principal diagnosis: Left leg weakness and numbness Interval history: No acute events overnight. Objective - Exam Narrative Exam: Patient is alert, awake, oriented x4, follows complex commands. No dysarthria or aphasia noted. PERRL, EOMI, VFF, tongue midline, bilaterally intact to LT, no facial weakness noted. 5/5 strength in right upper extremity/right lower extremity/left upper extremity, left lower extremity: Hip extensors 3/5 noted to be pain limited, hip flexors 5/5, knee flexors 3/5, knee extensors 5/5, ankle flexors 1/5, ankle extensors 1/5, toe flexors and extensors 1/5. Decreased sensations in the left lower extremity from the ankle downwards. Bilaterally intact to FTN and HTS. 2+ reflexes throughout. - Vital Sign Vital Signs - 12hr 05/04/19 08:08 Temperature 97.7 F Pulse Rate 70 Respiratory 18 Rate Blood Pressure 105/66 O2 Sat by Pulse 95 Oximetry - General Apperance Constitutional: comfortable - EENT EENT: ATNC, PERRL, mucous membranes moist, hearing intact, vision intact - Respiratory Respiratory: lungs clear, normal breath sounds - Cardiovascular Cardiovascular: regular rate, normal S1, normal S2 Extremities: no clubbing, cyanosis, no inflammation - Gastrointestinal Gastrointestinal: normoactive bowel sounds, soft, non-tender - Integumentary Integumentary: normal - Musculoskeletal Musculoskeletal: fluid collection (Left lower extremity) - Psychiatric Psychiatric: mood/affect appropriate - Laboratory Findings CBC and BMP: 04/30/19 00:54 Abnormal Lab Findings: Abnormal Labs 04/29/19 09:35 [place] % (Auto) 8.4 H Seg Neutrophils % 76.5 H
[2019-05-04] MEDS: IBUPROFEN 800 MG TAB PO PRN (22:30)
[2019-05-05] MEDS: HYDROcodone/ACETAMINOPHEN 5-325 MG TAB PO PRN (05:50)
[2019-05-05] MEDS: PRENATAL VIT27-FE FUMARATE-FOLIC ACID VIT TAB PO SCH (09:52)
[2019-05-05] MEDS: FERROUS SULFATE 325 MG TAB PO SCH ×2 (09:53→10:05)
--- NOTE | 2019-05-05 09:53 | Progress Note ---
Assessment and Plan - Patient Problems (1) Status post repeat low transverse section Current Visit: No Status: Acute Plan to address problem: POD 6 - stable but with numbness & tingling of left leg s/p inpatient Neuro consult and Physical Therapy Case Management Consult ordered for coordination of outpatient care Discharge to home today Follow up with Neurology outpatient Follow-up at [facility] as needed or in 1 week for incision check (2) Numbness and tingling of left leg Current Visit: Yes Status: Acute Subjective - Subjective Date of service: 05/05/19 Principal diagnosis: POD #6; s/p Repeat LTCS; Post-op LLE Paresthesia Interval history: see H&P, OP Report, PP/ICT SALES ASSISTANT Progress Notes, Neurology Consult and Progress Notes Patient reports: appetite normal, voiding normally, pain well controlled, flatus, bowel movement, other (numbness & weakness of LLE), no dizzy ambulation [place]: doing well Objective - Vital Signs Latest vital signs: Vital Signs Temp Pulse Resp BP BP Pulse Ox 05/05/19 00:00 98.6 F 72 18 104/70 05/04/19 16:00 98.1 F 76 20 121/75 96 Intake and Output 05/04/19 05/05/19 05/05/19 23:59 07:59 15:59 Intake Total 540 600 Balance 540 600 Intake: Oral 240 Intake, Free Water 300 600 Other: Total, Intake Amount 240 # Voids Void 1 1 - Exam Cardiovascular: Present: Regular rate Lungs: Present: Clear to auscultation Abdomen: Present: normal appearance, soft Vulva: both: normal Uterus: Present: normal, firm, fundal height below umbilicus Extremities: Present: other (LLE numbness & weakness) Incision: Present: normal, intact Comments: scant lochia
--- NOTE | 2019-05-05 10:08 | Discharge Summary ---
Providers - Providers Date of Admission: 04/29/19 09:01 Date of discharge: 05/05/19 Attending physician: ELICIA MARIE MD 05/02/19 16:00 Consult to Physician [CONS] Routine Comment: Consulting Provider: TRI GILLESPIE Physician Instructions: Reason For Exam: paresthesia left leg 05/04/19 10:52 Physical Therapy Evaluation and Treat [CONS] Urgent Comment: Reason For Exam: left leg weakness 05/05/19 09:36 Consult to Case Management [CONS] Urgent Services Needed at Discharge: Delivery Coordinator Notified:: no Was contact made?: No Additional Physician Instructions: client needs neuro consult after discharge and needs walker Primary care physician: ELICIA MARIE MD Hospitalization Reason for admission: section, IUP at term Delivery: Procedure: repeat low transverse Episiotomy: none Laceration: none Incision: normal, dry, intact Other procedures: none complications: other (LLE numbness and weakness) Discharge diagnosis: IUP at term delivered baby: female Hospital course: complicated by postop numbness and weakness of left lower extremity Condition at discharge: Stable Disposition: DC-01 TO HOME OR SELFCARE - Discharge Diagnoses (1) Status post repeat low transverse section Status: Acute (2) Numbness and tingling of left leg Status: Acute Plan - Discharge Medications Prescriptions: Ibuprofen [Motrin 800 MG tab] 800 mg PO Q6H PRN #30 tablet PRN Reason: Pain, Mild (1-3) HYDROcodone/APAP 5-325 [[place] 5/325] 1 - 2 each PO Q4HR PRN #30 tablet PRN Reason: Pain - Provider Discharge Summary Activity: routine, no sex for 6 weeks, no heavy lifting 4 weeks, no strenuous exercise Diet: routine Instructions: routine Additional instructions: [] Smoking cessation referral if applicable(refer to patient education folder for contact #) [] Refer to [facility]'s [facility] Booklet Call your doctor immediately for: * Fever > 100.5 * Heavy vaginal bleeding ( >1 pad per hour) * Severe persistent headache * Shortness of breath * Reddened, hot, painful area to leg or breast * Drainage or odor from incision. * Keep incision clean and dry at all times and follow doctor's instructions regarding bathing/showering - Follow up plan Follow up: ELICIA MARIE MD [Primary Care Provider] - 7 Days (Follow up with Neurology outpatient Follow-up at [facility] as needed or in 1 week for incision check ) Forms: [facility] Discharge Summary
[2019-05-05 15:51] VITALS: BP 112/76
== END 2019-05-05 16:24 | disposition home or self-care (01) | DRG 788 ==
LOC: APU 09:01 → OB 15:50
PROVIDERS: ADMIT Obstetrics & Gynecology; ATTEND Obstetrics & Gynecology
PROC: 10D00Z1 Extraction of Products of Conception, Low, Open Approach (ICD-10-PCS; principal; 2019-04-29)
DX: O34.211 Maternal care for low transverse scar from previous cesarean delivery (principal); Z3A.39 39 weeks gestation of pregnancy; Z37.0 Single live birth; O90.89 Other complications of the puerperium, not elsewhere classified; R20.2 Paresthesia of skin; Z87.442 Personal history of urinary calculi; Z88.0 Allergy status to penicillin
CPT/HCPCS: 36415; 70551; 72148; 85014; 85018; 85025; 86592; 86850; 86900; 86901; G0378; J1100; J1580; J1885; J2405; J2590; J2765; J7040; J7120

== ENCOUNTER 2021-03-22 04:53 | Inpatient (IN) | payer SELFPAY ==
[2021-03-22] MEDS ORDERED: TERBUTALINE 1 MG/1 ML INJ SUB-Q PRN (09:00)
[2021-03-22] MEDS ORDERED: LACTATED RINGERS 1,000 ML IV ONE (09:00)
--- NOTE | 2021-03-22 11:26 | Ultrasound Report ---
ULTRASOUND OBSTETRIC LIMITED ULTRASOUND BIOPHYSICAL PROFILE INDICATION / CLINICAL INFORMATION: WELL BEING. Clinical Gestational Age (GA) in weeks, days: 38, 4 TECHNIQUE: Transabdominal. COMPARISON: None available. FINDINGS: BREATHING MOVEMENT = 2 GROSS BODY MOVEMENT = 2 TONE = 2 QUALITATIVE AMNIOTIC FLUID VOLUME = 2 TOTAL BIOPHYSICAL SCORE = 8/8 HEART RATE (beats per minute): 125 AMNIOTIC FLUID INDEX (cm) = 16.3 (normal = 7-24 cm) PRESENTATION: Cephalic. ADDITIONAL FINDINGS: There is an anterior grade 2 placenta without signs of abruption. IMPRESSION: 1. Biophysical Score = 8/8 Signer Name: Wm Patel DO Signed: 03/22/2021 11:21 AM Workstation Name: [id number]
[2021-03-22] MEDS ORDERED: BICITRA ORAL LIQD 30ML PO SCH (11:46)
[2021-03-22] MEDS ORDERED: FAMOTIDINE 20 MG/2 ML INJ IV SCH (11:46)
[2021-03-22] MEDS ORDERED: METOCLOPRAMIDE 10 MG/2 ML INJ IV SCH (11:46)
[2021-03-22] MEDS ORDERED: ceFAZolin/Water 2 GM/20 ML 2 GM/20 ML SYRINGE IV NR (12:00)
[2021-03-22] MEDS ORDERED: LACTATED RINGERS 1,000 ML IV SCH (12:00)
[2021-03-22] MEDS ORDERED: OXYTOCIN DRIP 30 UNITS/500 ML BAG IV SCH ×2 (12:00→19:40)
[2021-03-22 12:24] LABS: Basophils # (Auto) 0.1 K/mm3 (0.0-0.1); Basophils % (Auto) 0.8 % (0.0-1.8); Eosinophils % (Auto) 0.4 % (0.0-4.3); Hematocrit 36.6 % (30.3-42.9); Hemoglobin 11.7 gm/dl (10.1-14.3); Lymphocytes # (Auto) 1.5 K/mm3 (1.2-5.4); Lymphocytes % (Auto) 17.1 % (13.4-35.0); Mean Corpuscular HGB Conc 32 % (30-34); Mean Corpuscular Volume 88 fl (79-97); Monocytes # (Auto) 0.6 K/mm3 (0.0-0.8); Monocytes % (Auto) 6.7 % (0.0-7.3); Platelet Count 243 K/mm3 (140-440); Red Blood Count 4.16 M/mm3 (3.65-5.03); Red Cell Distribution Width 15.3 % (13.2-15.2)
[2021-03-22] MEDS ORDERED: GENTAMICIN/NS 120MG/100ML 120 MG/100 ML BAG IV SCH (14:02)
--- NOTE | 2021-03-22 14:39 | Anesthesia Day of Surgery ---
Anesthesia Day of Surgery - Day of Surgery Patient Examined: Yes Patient H&P Reviewed: Yes Patient is NPO: Yes Beta Blockers: No Cardiac Clearance: No Pulmonary Clearance: No Carlos's Test: Negative
--- NOTE | 2021-03-22 14:40 | Anesthesia Consultation ---
Anesthesia Consult and Med Hx Date of service: 03/22/21 - Airway Anesthetic Teeth Evaluation: Poor ROM Head & Neck: Adequate Mental/Hyoid Distance: Adequate Mallampati Class: Class II Intubation Access Assessment: Good - Pulmonary Exam CTA: Yes - Cardiac Exam Cardiac Exam: RRR - Pre-Operative Health Status ASA Pre-Surgery Classification: ASA3 Proposed Anesthetic Plan: Epidural - Pulmonary Hx Smoking: No (former social smoker) Hx Asthma: No Hx Respiratory Symptoms: No SOB: No COPD: No Home Oxygen Therapy: No Hx Pneumonia: No Hx Sleep Apnea: No - Cardiovascular System Hx Hypertension: No Hx Coronary Artery Disease: No Hx Heart Attack/AMI: No Hx Angina: No Hx Percutaneous Transluminal Coronary Angioplasty (PTCA): No Hx Cardia Arrhythmia: No Hx Pacemaker: No Hx Internal Defibrillator: No Hx Valvular Heart Disease: No Hx Heart Murmur: No Hx Peripheral Vascular Disease: No - Central Nervous System Hx Neuromuscular Disorder: No Hx Seizures: No CVA: No Hx Back Pain: Yes Hx Psychiatric Problems: No - Gastrointestinal Hx Ulcer: No Hx Gastroesophageal Reflux Disease: Yes - Endocrine Hx Renal Disease: No Hx End Stage Renal Disease: No Hx Cirrhosis: No Hx Liver Disease: No Hx Insulin Dependent Diabetes: No Hx Non-Insulin Dependent Diabetes: Yes (pre GDM, no medications) Hx Thyroid Disease: No Hx Hypothyroidism: No Hx Hyperthyroidism: No - Hematic Hx Anemia: No Hx Sickle Cell Disease: No - Other Systems Hx Alcohol Use: No Hx Substance Use: No Hx Cancer: No Hx Obesity: Yes
--- NOTE | 2021-03-22 14:44 | History and Physical Report ---
History of Present Illness Date of examination: 03/22/21 Date of admission: 03/22/21 Chief complaint: pain to the abdomen with previous c/section x4 History of present illness: at 38.6wks by records from [place], [place]. with EDC 03/30/21. Pt came with c/o lower abdominal pain more on the right side that is increasing in intensity. pt was [place] [facility] chose to come here. pt desires permanent sterilization and has signed tubal papers on 02/21/21. Pt admits to movement, denies LOF or vag bleed. Pt admits to feeling painful contractions. PT was also treated for UTI this preg. Past History Past Medical History: no pertinent history Past Surgical History: section (x4) Social history: no significant social history - Obstetrical History Expected Date of Delivery: 03/30/21 Actual Gestation: 38 Week(s) 6 Day(s) : 5 Hx # Term Pregnancies: 3 Number of Pregnancies: 1 Number of Living Children: 4 Medications and Allergies Allergies Allergy/AdvReac Type Severity Reaction Status Date / Time Penicillins Allergy Severe Rash Verified 03/22/21 11:50 Home Medications Medication Instructions Recorded Confirmed Last Taken Type Ferrous Sulfate [Feosol 325 MG tab] 325 mg PO BID #60 tablet 12/27/15 04/29/19 04/26/19 21:00 Rx HYDROcodone/APAP 5-325 [[place] 1 - 2 each PO Q4HR PRN #30 tablet 04/29/19 Unknown Rx 5/325] Ibuprofen [Motrin 800 MG tab] 800 mg PO Q6H PRN #30 tablet 05/05/19 Unknown Rx Active Meds: Active Medications Citric Acid/Sodium Citrate (Bicitra Oral Liqd 30ml) 30 ml PO ONCE BERNARDINO Last Admin: 03/22/21 14:25 Dose: 30 ml Famotidine (Famotidine 20 Mg/2 Ml Inj) 20 mg IV ONCE BERNARDINO Last Admin: 03/22/21 14:25 Dose: 20 mg Lactated Ringer's (Lactated Ringers) 1,000 mls @ 2,250 mls/hr IV PREOP BERNARDINO Stop: 03/23/21 12:27 Oxytocin/Sodium Chloride (Pitocin/Ns 30 Unit/500ml) 30 units in 500 mls @ 0 mls/hr IV TITR BERNARDINO; Protocol Gentamicin Sulfate/Sodium Chloride (Gentamicin/Ns 120mg/100ml) 120 mg in 100 mls @ 200 mls/hr IV ONCE BERNARDINO; Protocol Clindamycin HCl (Cleocin 900 Mg/50 Ml) 900 mg in 50 mls @ 100 mls/hr IV PREOP BERNARDINO; Protocol Metoclopramide HCl (Metoclopramide 10 Mg/2 Ml Inj) 10 mg IV ONCE BERNARDINO Last Admin: 03/22/21 14:25 Dose: 10 mg Terbutaline Sulfate (Terbutaline 1 Mg/1 Ml Inj) 0.25 mg SUB-Q ONCE PRN PRN Reason: Hyperstimulation/Hypertonicity Review of Systems All systems: negative (persistent pain on the right side only) - Vital Signs Vital signs: Vital Signs Temp Pulse Resp BP Pulse Ox 98.4 F 89 18 124/83 99 03/22/21 07:42 03/22/21 07:42 03/22/21 07:42 03/22/21 07:42 03/22/21 07:42 Temp Pulse Resp BP Pulse Ox 98.4 F 95 H 18 124/83 98 03/22/21 07:42 03/22/21 14:18 03/22/21 07:42 03/22/21 07:42 03/22/21 14:18 - Physical Exam Breasts: Positive: deferred Cardiovascular: Regular rate Lungs: Positive: Normal air movement Abdomen: Positive: normal appearance, soft Genitourinary (Female): Positive: normal external genitalia Vagina: Positive: normal moisture Uterus: Positive: normal size Adnexa: both: normal Extremities: Positive: normal - Obstetrical FHR: category 1 Uterine Contraction Monitor Mode: External Cervical Dilatation: 0 Cervical Effacement Percentage: 50 station: -3 Uterine Contraction Pattern: Irregular Uterine Contraction Intensity: Moderate Results Result Diagrams: 03/22/21 11:00 Abnormal lab results 03/22/21 Range/Units 11:00 RDW 15.3 H (13.2-15.2) % Seg Neutrophils % 75.0 H (40.0-70.0) % All other labs normal. Assessment and Plan Term with previous c/section x4 in labor and desires permanent sterilization, however tubal papers not valid until 03/24/21 and pt has not made arrangements with this hospital to have same done 1 Admit to labor and delivery for repeat section 2. Pt to have sterilization at a later date unless ok by hospital accounting dept 3. All questions encouraged and answered and consents signed
[2021-03-22] MEDS ORDERED: SODIUM CHLORIDE 0.9% IRR 1,500 ML BOTTLE IR ONE (15:25)
[2021-03-22] MEDS ORDERED: WATER FOR IRRIG STERILE 1,500 ML BOTTLE IR ONE (15:25)
--- NOTE | 2021-03-22 17:11 | Progress Note ---
Spinal Anesthesia Block - Spinal Anesthesia Block Start Time: 14:53 Stop Time: 15:00 Performed by:: CLAIRE BERG Procedure: Patient is requesting epidural for labor pain. H&P and labs reviewed. Procedure explained, questions answered, consent obtained. Patient placed in sitting position with monitors applied. Timeout performed immediately before start of procedure. Prep/drape in usual sterile fashion. Skin localized 3 mL 1% lidocaine at L[2]-L[3] interspace. 18-gauge Touhy epidural needle advanced to SHIRIN with saline at [7] cm. No blood/CSF noted via epidural needle. 26g spinal needle advanced into intrathecal space until clear, free flowing CSF noted. 1.4ml 0.75% hyperbaric bupivacaine + 10mcg Precedex injected into intrathecal space. Spinal needle removed and epidural catheter advanced to [10] cm. Negative aspiration for blood and CSF via catheter, negative response to test dose 3 ml 1.5% lidocaine w/ epi. Sterile dressing applied followed by tape reinforcement. Patient tolerated procedure well. No immediate complications noted.
--- NOTE | 2021-03-22 17:12 | Progress Note ---
Regional Anesthesia Block - Regional Anesthesia Block Start Time: 16:48 Stop Time: 16:51 Performed By:: CLAIRE BERG Procedure: Patient consented for TAP block for post surgical pain management. Patient identified, monitors placed, and time out performed. TAP identified bilaterally via ultrasound. Skin prepped bilaterally with [chlorhexidine] and [22g stimuplex] needle advanced to the TAP. [Marcaine 0.22% 30ml] injected under ultrasound guidance on the [left] side. [Marcaine 0.22% 30ml] injected under ultrasound guidance on the [right] side. Negative aspiration every 5mL, No change in heart rate or rhythm. Patient tolerated the procedure well. No apparent complications seen.
--- NOTE | 2021-03-22 17:17 | Procedure Note ---
OB Delivery Note - Delivery Date of Delivery: 03/22/21 Surgeon: KASANDRA JOSEPH Estimated blood loss: other (1102cc by QBL) - Section Preop diagnosis: repeat (H/O C/S x4), desires sterilization, other (early labor) Postop diagnosis: same (and absent right rectus muscle to lower abdomen) section procedure: repeat low transverse (Unable to do tubal ligation with papers not valid and no arrangements made with hospital to do same) Disposition: floor Complications: none Narrative: Date: 03/22/21 Surgeon: Kasandra Joseph MD Preop Dx: IUP at 38.6wks, H/O C/S x4 now in early labor with pain more on right side; Desires permanent sterilization with paper not valid until 03/24/21; morbid obesity Postop Dx: same and absent right rectus muscle to lower abdomen Procedure : Repeat Low transverse section Anesthesia: spinal/epidural Intake: 2800cc Output: 700cc clear EBL: 1102cc After the risks, benefits and alternatives of procedure discussed, patient signed consents and was taken to the operating room. Pt was given spinal/epidural anesthesia. After same was adequate, patient was prepped and draped in the usual sterile fashion. Carlson catheter in place and draining clear urine. Pt was given prophylactic antibiotic per protocol and time out was done Pfannenstiel skin incision was made and taken sharply to the fascia and the incision extended using electrocautery. Superior edge of the fascia was grasped with terrie clamps and the rectus muscle sharply and noted to have muscle on the left and only anterior peritoneum on the right. Lower portion of the fascia was not taken down. Rectus muscle on the left and Peritoneal cavity entered sharply with good visualization of the bladder. Ruperto retractor placed without difficulty. The bladder flap was created sharply using metzenbaum scissors. Lower uterine segment thin noted with engorged vessels to lower uterine segment. Tranverse incision was made just above the multiple vessels and uterine incision extended using bandage scissors and amniotic sac entered using allys clamps. Large Infant delivered, bulb suctioned, cord clamped and baby handed to waiting pediatricians. Anterior Placenta then delivered completely and uterine cavity cleared of all clots and debri. Endometrial cavity with fragmented tissue that torn easily as it was sewn. The uterus was not exteriorized and closed in 2 layers using 0-monocryl] suture in a running locked fashion and then an additional layer of imbrication suture using interrupted figure of 8 sutures where bleeding was seen. Surgicel powder was placed along the repaired uterine incision. Excellent hemostasis noted. The gutters were cleared of clots and debri and anterior peritoneum on the right was closed with the left rectus muscle using 0-vicryl suture in continuous fashion. Rectus fascia closed with 0-vicryl suture in a continuous fashion and subcutaneous tissue copiously irrigated with normal saline and re-approximated using 3-0 vicryl suture. Excellent hemostasis remains. The skin was closed with 4-0 monocryl suture and steristrips placed with pressure dressing. Sponge, lap, instrument and needle counts x2 were normal. Patient tolerated the procedure well and was taken to recovery room stable. Findings: Viable male , APGARS 9/10 and weight 3630g. Normal uterus, tubes and ovaries. - B at 1 minute: 9 at 5 minutes: 10 Infant Gender: Male (clear amniotic fluid; wt 3630g)
[2021-03-22] MEDS ORDERED: miSOPROStol 200 MCG TAB ONE (17:25)
[2021-03-22 18:06] LABS: Hematocrit 35.4 % (30.3-42.9); Hemoglobin 11.5 gm/dl (10.1-14.3); Mean Corpuscular HGB Conc 32 % (30-34); Mean Corpuscular Volume 88 fl (79-97); Platelet Count 212 K/mm3 (140-440); Red Blood Count 4.03 M/mm3 (3.65-5.03); Red Cell Distribution Width 14.9 % (13.2-15.2)
[2021-03-22] MEDS ORDERED: miSOPROStol 200 MCG TAB PR ONE (18:21)
[2021-03-22] MEDS ORDERED: IBUPROFEN 800 MG TAB PO PRN (19:40)
[2021-03-22] MEDS ORDERED: ONDANSETRON 4 MG/2 ML INJ IV PRN (19:40)
[2021-03-22] MEDS ORDERED: WITCH HAZEL/ GLYCERIN PAD TP PRN (19:40)
[2021-03-22] MEDS ORDERED: MAGNESIUM HYDROXIDE (MOM) ORAL LIQD UDC PO PRN (19:40)
[2021-03-22] MEDS ORDERED: LANOLIN/ZINC/DIMETHICONE (LANSINOH) 7 GM TP PRN (19:40)
[2021-03-22] MEDS ORDERED: NALOXONE 0.4 MG/1 ML INJ IV PRN (19:40)
[2021-03-22] MEDS ORDERED: SIMETHICONE 80 MG CHEW TAB PO PRN (19:40)
[2021-03-22] MEDS ORDERED: IBUPROFEN 600 MG TAB PO PRN (19:40)
[2021-03-22] MEDS ORDERED: PROMETHAZINE 25 MG RECT SUPP PR PRN (19:40)
[2021-03-22] MEDS ORDERED: SENNOSIDES 8.6 MG TAB PO PRN (19:40)
[2021-03-22] MEDS ORDERED: HYDROCORTISONE 25 MG RECTAL SUPP PR PRN (19:40)
[2021-03-22] MEDS ORDERED: ACETAMINOPHEN 325 MG TAB PO PRN (19:40)
[2021-03-22] MEDS: MORPHINE 4 MG/1 ML INJ IV PRN (20:41)
[2021-03-22] MEDS: oxyCODONE /ACETAMINOPHEN 5-325MG TAB PO PRN (22:56)
[2021-03-23] MEDS: GENTAMICIN 400 MG in SODIUM CHLORIDE 0.9% 100 ML IV SCH ×2 (00:04→23:37)
[2021-03-23] MEDS: oxyCODONE /ACETAMINOPHEN 5-325MG TAB PO PRN ×2 (03:04→08:15)
[2021-03-23] MEDS: MORPHINE 4 MG/1 ML INJ IV PRN (03:56)
[2021-03-23 08:31] LABS: Basophils % (Auto) 0.3 % (0.0-1.8); Eosinophils % (Auto) 0.5 % (0.0-4.3); Hematocrit 32.9 % (30.3-42.9); Hemoglobin 10.5 gm/dl (10.1-14.3); Lymphocytes # (Auto) 0.9 K/mm3 (1.2-5.4); Lymphocytes % (Auto) 12.4 % (13.4-35.0); Mean Corpuscular HGB Conc 32 % (30-34); Mean Corpuscular Volume 87 fl (79-97); Monocytes # (Auto) 0.6 K/mm3 (0.0-0.8); Monocytes % (Auto) 8.3 % (0.0-7.3); Platelet Count 180 K/mm3 (140-440); Red Blood Count 3.78 M/mm3 (3.65-5.03); Red Cell Distribution Width 15.3 % (13.2-15.2)
--- NOTE | 2021-03-23 09:15 | Progress Note ---
Assessment and Plan A: /postop day 1 S/P repeat LTCS. Obesity. Postop pain. P: Abdominal binder ordered. Patient to get out of bed and ambulate. Warm liquids to drink. Mylicon to be given on scheduled basis. Switched pain medication to [place] and Ibuprofen. Subjective - Subjective Date of service: 03/23/21 Principal diagnosis: /postop day 1 S/P repeat LTCS Interval history: Patient requests to switch her pain medication due to incision pain. Passing gas, voiding without difficulty. Has not been up to walk yet. Patient reports: appetite normal, voiding normally, flatus, no pain well contr olled, no nauseated [place]: doing well Objective - Vital Signs Latest vital signs: Vital Signs Temp Pulse Resp BP Pulse Ox Pulse Ox 03/22/21 23:04 98.3 F 88 18 118/70 98 03/22/21 19:40 99 03/22/21 18:45 97.3 F L 64 98/58 100 100 03/22/21 18:05 97.4 F L 64 16 110/64 99 03/22/21 18:00 64 16 110/64 99 03/22/21 17:45 64 16 110/64 99 03/22/21 17:30 63 14 109/73 99 03/22/21 17:15 70 15 106/65 99 03/22/21 17:10 69 17 108/69 99 03/22/21 17:05 70 15 106/63 99 03/22/21 17:03 98 F 72 16 101/61 99 03/22/21 14:18 95 H 98 03/22/21 14:12 91 H 96 03/22/21 14:07 87 97 03/22/21 14:02 93 H 98 03/22/21 13:57 89 98 03/22/21 13:56 86 91 03/22/21 13:52 83 96 03/22/21 13:47 88 97 03/22/21 13:42 109 H 96 03/22/21 13:37 89 98 03/22/21 13:32 96 H 98 03/22/21 13:27 86 97 03/22/21 13:22 89 97 03/22/21 13:17 91 H 97 03/22/21 13:12 89 97 03/22/21 13:07 92 H 97 03/22/21 13:02 105 H 96 03/22/21 12:57 88 96 03/22/21 12:52 105 H 97 03/22/21 12:47 106 H 97 03/22/21 12:42 94 H 95 03/22/21 12:37 100 H 95 03/22/21 12:32 98 H 96 03/22/21 12:27 85 98 03/22/21 12:22 98 H 97 03/22/21 12:17 92 H 98 03/22/21 12:12 108 H 98 03/22/21 12:07 92 H 98 03/22/21 12:02 94 H 97 03/22/21 11:57 98 H 99 03/22/21 11:52 104 H 98 03/22/21 11:47 96 H 98 03/22/21 11:42 105 H 98 03/22/21 11:37 88 98 03/22/21 11:32 100 H 97 03/22/21 11:27 104 H 98 03/22/21 11:22 95 H 98 03/22/21 11:17 90 97 03/22/21 11:12 87 98 03/22/21 11:07 102 H 97 03/22/21 11:02 89 99 03/22/21 10:57 94 H 98 03/22/21 10:52 94 H 98 03/22/21 10:47 94 H 98 03/22/21 10:42 88 98 03/22/21 10:37 95 H 98 03/22/21 10:32 91 H 98 03/22/21 10:27 90 98 03/22/21 10:22 89 98 03/22/21 10:17 88 99 03/22/21 10:12 91 H 99 03/22/21 10:07 96 H 100 03/22/21 10:02 95 H 100 03/22/21 09:57 94 H 99 03/22/21 09:52 102 H 100 03/22/21 09:47 97 H 100 03/22/21 09:42 87 100 03/22/21 09:37 90 99 03/22/21 09:32 90 99 03/22/21 09:27 84 99 03/22/21 09:22 89 100 03/22/21 09:17 90 99 03/22/21 09:12 91 H 99 Intake and Output 03/22/21 03/23/21 03/23/21 23:59 07:59 15:59 Intake Total 1950 Output Total 900 1600 Balance 1050 -1600 Intake: IV 1950 CLEOCIN 900 MG/50 mL 900 50 mg In 50 ml @ 100 mls/hr IV Q8H [facility] Rx#:[id number] Output: Urine 900 1600 Uretheral (Carlson) 1600 Other: Estimated Blood Loss 1,102 - Exam Cardiovascular: Present: Regular rate, No murmurs Lungs: Present: Clear to auscultation Abdomen: Present: normal appearance, soft, normal bowel sounds. Absent: distention, tenderness, guarding, rigidity Uterus: Present: normal, firm, fundal height below umbilicus. Absent: bogginess, tenderness Extremities: Present: edema (mild bilateral pedal edema). Absent: tenderness Incision: Present: dry, dressed - Labs Labs: Abnormal lab results 03/22/21 03/23/21 Range/Units 11:00 07:40 RDW 15.3 H 15.3 H (13.2-15.2) % Lymph % (Auto) 12.4 L (13.4-35.0) % [place] % (Auto) 8.3 H (0.0-7.3) % Lymph # (Auto) 0.9 L (1.2-5.4) K/mm3 Seg Neutrophils % 75.0 H 78.5 H (40.0-70.0) %
[2021-03-23] MEDS: HYDROcodone/ACETAMINOPHEN 5-325 MG TAB PO PRN ×3 (09:31→21:02)
[2021-03-23] MEDS: SIMETHICONE 80 MG CHEW TAB PO SCH ×3 (09:31→21:02)
[2021-03-23] MEDS: IBUPROFEN 800 MG TAB PO PRN ×2 (09:31→18:26)
[2021-03-23] MEDS: PRENATAL VIT27-FE FUMARATE-FOLIC ACID VIT TAB PO SCH (10:58)
[2021-03-23] MEDS: FERROUS SULFATE 325 MG TAB PO SCH (10:58)
[2021-03-24] MEDS: HYDROcodone/ACETAMINOPHEN 5-325 MG TAB PO PRN ×4 (02:50→22:51)
[2021-03-24] MEDS: SIMETHICONE 80 MG CHEW TAB PO SCH ×3 (02:55→23:00)
[2021-03-24] MEDS: IBUPROFEN 800 MG TAB PO PRN ×2 (06:17→19:56)
[2021-03-24] MEDS: FERROUS SULFATE 325 MG TAB PO SCH (09:09)
[2021-03-24] MEDS: PRENATAL VIT27-FE FUMARATE-FOLIC ACID VIT TAB PO SCH (09:09)
--- NOTE | 2021-03-24 11:24 | Progress Note ---
Subjective - Subjective Principal diagnosis: /postop day 2 S/P repeat LTCS Interval history: DC home today/tomorrow depending on Pt desire. Meets DC criteria incision c/d/i +ve flatus tolerating PO continue postop care Diana Squires MD Patient reports: appetite normal, voiding normally, pain well controlled, ambulating normally [place]: doing well Objective - Vital Signs Latest vital signs: Vital Signs Temp Pulse Resp BP Pulse Ox Pulse Ox 03/24/21 09:27 97.8 F 84 20 125/69 97 03/24/21 08:10 98 03/24/21 01:03 97.9 F 72 18 101/51 97 03/23/21 20:45 98 03/23/21 18:26 18 03/23/21 16:47 97.8 F 92 H 18 107/61 96 03/23/21 13:25 97.9 F 83 18 110/60 94 Intake and Output 03/23/21 03/24/21 03/24/21 23:59 07:59 15:59 Intake Total 240 120 Balance 240 120 Intake: Oral 240 120 Other: Total, Intake Amount 240 120 # Voids Void 1 1
--- NOTE | 2021-03-24 11:28 | Discharge Summary ---
Providers - Providers Date of Admission: 03/22/21 14:47 Date of discharge: 03/24/21 Attending physician: EDWARD JOSEPH Primary care physician: CLAIMS AGENT RIGHT OF WAY Hospitalization Condition at discharge: Stable Disposition: 01 HOME / SELF CARE / HOMELESS Plan - Discharge Medications Prescriptions: Ibuprofen [Motrin] 800 mg PO Q8HR PRN 21 Days #40 tablet PRN Reason: Pain, Moderate (4-6) oxyCODONE /ACETAMINOPHEN [Percocet 5/325] 1 tab PO Q4HR PRN 21 Days #30 tab PRN Reason: Pain , Severe (7-10) - Provider Discharge Summary Activity: no sex for 6 weeks Diet: routine Instructions: routine Additional instructions: [] Smoking cessation referral if applicable(refer to patient education folder for contact #) [] Refer to [facility] Booklet Call your doctor immediately for: * Fever > 100.5 * Heavy vaginal bleeding ( >1 pad per hour) * Severe persistent headache * Shortness of breath * Reddened, hot, painful area to leg or breast * Drainage or odor from incision. * Keep incision clean and dry at all times and follow doctor's instructions regarding bathing/showering - Follow up plan Follow up: PRIMARY CARE, [Primary Care Provider] - 7 Days EDWARD JOSEPH MD [Staff Physician] - 14 Days
[2021-03-25] MEDS: HYDROcodone/ACETAMINOPHEN 5-325 MG TAB PO PRN (05:35)
[2021-03-25] MEDS: SIMETHICONE 80 MG CHEW TAB PO SCH (05:35)
[2021-03-25 09:12] VITALS: BP 104/59
== END 2021-03-25 10:15 | disposition home or self-care (01) | DRG 788 ==
LOC: TRG 04:53 → APU 07:27 → TRG 14:57 → APU 15:30 → OB 18:30
PROVIDERS: ADMIT Obstetrics & Gynecology; ATTEND Obstetrics & Gynecology
PROC: 10D00Z1 Extraction of Products of Conception, Low, Open Approach (ICD-10-PCS; principal; 2021-03-22)
PROC: 3E0T3BZ Introduction of Anesthetic Agent into Peripheral Nerves and Plexi, Percutaneous Approach (ICD-10-PCS; 2021-03-22)
DX: O99.62 Diseases of the digestive system complicating childbirth (principal); O34.211 Maternal care for low transverse scar from previous cesarean delivery; Z37.0 Single live birth; Z3A.38 38 weeks gestation of pregnancy; K21.9 Gastro-esophageal reflux disease without esophagitis; O99.214 Obesity complicating childbirth; E66.01 Morbid (severe) obesity due to excess calories; Z88.0 Allergy status to penicillin; Z20.822 Contact with and (suspected) exposure to COVID-19
CPT/HCPCS: 36415; 59025; 76815; 76819; 85025; 85027; 86850; 86900; 86901; 87076; 87086; 87186; 96360; G0378; J3490; J7502; J1580; J2270; J2765; J7120; U0003

== ENCOUNTER 2021-07-06 07:00 | Day surgery (SDC) | payer MEDICAID ==
[2021-07-06] MEDS ORDERED: fentaNYL 100 MCG/2 ML INJ ONE (07:16)
[2021-07-06] MEDS ORDERED: LIDOCAINE MPF (2%) 20 MG/1 ML VIAL 5 ML ONE (07:16)
[2021-07-06] MEDS ORDERED: ROCURONIUM 50 MG/5 ML INJ IV ONE (07:16)
[2021-07-06] MEDS ORDERED: propofoL 200 MG/20 ML VIAL IV ONE (07:17)
[2021-07-06] MEDS ORDERED: LACTATED RINGERS 1,000 ML ONE (07:20)
[2021-07-06] MEDS ORDERED: MAGNESIUM OXIDE 400 MG TAB PO ONE (07:56)
[2021-07-06] MEDS ORDERED: ACETAMINOPHEN 500 MG TAB PO ONE (07:56)
[2021-07-06] MEDS ORDERED: HYDROmorphone 1 MG/1 ML INJ IV PRN ×2 (07:57)
[2021-07-06] MEDS ORDERED: ONDANSETRON 4 MG/2 ML INJ IV PRN (07:57)
--- NOTE | 2021-07-06 07:57 | Anesthesia Day of Surgery ---
Anesthesia Day of Surgery - Day of Surgery Patient Examined: Yes Patient H&P Reviewed: Yes Patient is NPO: Yes
--- NOTE | 2021-07-06 07:59 | Anesthesia Consultation ---
Anesthesia Consult and Med Hx Date of service: 07/06/21 - Airway Anesthetic Teeth Evaluation: Good ROM Head & Neck: Adequate Mental/Hyoid Distance: Adequate Mallampati Class: Class II Intubation Access Assessment: Good - Pre-Operative Health Status ASA Pre-Surgery Classification: ASA1 Proposed Anesthetic Plan: General - Pulmonary Hx Smoking: No Hx Asthma: No Hx Respiratory Symptoms: No SOB: No COPD: No Hx Pneumonia: No Hx Sleep Apnea: No - Cardiovascular System Hx Hypertension: No Hx Coronary Artery Disease: No Hx Heart Attack/AMI: No Hx Angina: No Hx Percutaneous Transluminal Coronary Angioplasty (PTCA): No Hx Cardia Arrhythmia: No Hx Pacemaker: No Hx Internal Defibrillator: No Hx Valvular Heart Disease: No Hx Heart Murmur: No Hx Peripheral Vascular Disease: No - Central Nervous System Hx Neuromuscular Disorder: No Hx Seizures: No CVA: No Hx Back Pain: Yes Hx Psychiatric Problems: No - Gastrointestinal Hx Ulcer: No Hx Gastroesophageal Reflux Disease: Yes - Endocrine Hx Renal Disease: No Hx End Stage Renal Disease: No Hx Cirrhosis: No Hx Liver Disease: No Hx Insulin Dependent Diabetes: No Hx Non-Insulin Dependent Diabetes: Yes (pre GDM, no medications) Hx Thyroid Disease: No Hx Hypothyroidism: No Hx Hyperthyroidism: No - Hematic Hx Anemia: Yes Hx Sickle Cell Disease: No - Other Systems Hx Alcohol Use: No Hx Substance Use: No Hx Cancer: No Hx Obesity: No
[2021-07-06] MEDS ORDERED: LACTATED RINGERS 1,000 ML IV SCH (08:00)
[2021-07-06] MEDS ORDERED: CELECOXIB 200 MG CAP PO NR (08:00)
[2021-07-06] MEDS ORDERED: MIDAZOLAM 2 MG/2 ML INJ IV NR (08:00)
[2021-07-06] MEDS ORDERED: ACETAMINOPHEN 325 MG/10.15 ML ORAL LIQD UNIT DOSE ONE (08:20)
[2021-07-06] MEDS ORDERED: ACETAMINOPHEN 325 MG/10.15 ML ORAL LIQD UNIT DOSE PO NR (08:26)
[2021-07-06] MEDS ORDERED: SODIUM CHLORIDE 0.9% IRR 1,500 ML BOTTLE IR ONE (09:16)
[2021-07-06] MEDS ORDERED: SUGAMMADEX SODIUM 200 MG/2 ML VIAL IV ONE (09:31)
[2021-07-06] MEDS ORDERED: KETOROLAC 30 MG/1 ML INJ ONE (09:42)
[2021-07-06] MEDS ORDERED: dexAMETHasone 20 MG/5 ML VIAL ONE (09:42)
[2021-07-06] MEDS ORDERED: ONDANSETRON 4 MG/2 ML INJ ONE (09:42)
[2021-07-06 12:53] VITALS: BP 119/70
--- NOTE | 2021-07-06 14:56 | Post Anesthesia Evaluation ---
- Post Anesthesia Evaluation Patient Participated: Yes Airway Patent: Yes Stable Respiratory Function: Yes Nausea/Vomiting: No Temp > 96.8F: Yes Pain Manageable: Yes Adequeate Hydration: Yes Anesthesia Complications: No Block Receding Appropriately: Not Applicable Patient on Ventilator: No
--- NOTE | 2021-07-07 10:04 | Operative Report ---
Operative Report Operative Report: Preoperative diagnosis:Multiparity desiring permanent surgical sterilization Postoperative diagnosis:Same Procedure:Operative laparoscopic bilateral tubal ligation via fulguration Surgeon:Dr. Marilynn Squires Anesthesia:GETA Complication:none EBL:Less than 100 ml IV fluids:1 Liter crystalloid Urine output:Adequate, clear Drain:None Findings:No abdominal pathology uterus tubes and ovaries normal Procedure: Patient was consented in preop holding about risks benefits possible complications as well as alternatives to the procedure. After informed consent was obtained patient was taken to the operating room. She received excellent general endotracheal anesthesia and with no complication. She was then placed in the dorsal lithotomy position, prepped and draped in a sterile fashion. A timeout was verified, a red rubber catheter was placed atraumatically. A speculum was placed in the vaginal vault, the parametria was noted to be pink with no masses lesions or nodularity. The cervix was identified, grasped with a single-tooth tenaculum, and an acorn uterine manipulator was placed atraumati brian. Attention then turned to the abdomen. An umbilical incision was made with a scalpel, taken down to the fascia which was incised sharply atraumatically. Abdominal entry was achieved with the Tyler trocar under direct visualization. The abdomen was then appropriately insufflated to allow for safe passage of a trocar. One 5 mm ports were placed laterally in the usual fashion under direct visualization. The patient was placed in steep Trendelenburg. Using an LigaSure the fallopian tubes were fulgurated bilaterally. Excellent hemostasis. At the completion of the procedure all troc hars were removed atraumatically under direct visualization. The fascia was closed with 0 Vicryl, the skin closed with Monocryl. Pressure dressings were applied at all incision sites. The uterine manipulator and speculum were removed from the cervix and the vagina respectively. The patient was extubated and taken to the recovery area in stable condition. Her family was notified of her stable condition immediately following the completion of the procedure. There were no complications. EBL less than 50 mL. All sponge needle and instrument counts were correct x2. Diana Squires MD
== END 2021-07-06 11:28 | disposition home or self-care (01) ==
LOC: OR 07:00
PROVIDERS: ATTEND Obstetrics & Gynecology
DX: Z30.2 Encounter for sterilization (principal); D64.9 Anemia, unspecified; E11.9 Type 2 diabetes mellitus without complications; K21.9 Gastro-esophageal reflux disease without esophagitis; Z88.0 Allergy status to penicillin; Z79.899 Other long term (current) drug therapy; Z98.891 History of uterine scar from previous surgery; Z98.890 Other specified postprocedural states; Z90.710 Acquired absence of both cervix and uterus; Z87.440 Personal history of urinary (tract) infections; Z80.8 Family history of malignant neoplasm of other organs or systems; Z82.49 Family history of ischemic heart disease and other diseases of the circulatory system
CPT/HCPCS: 58670; 81025; J1100; J1170; J1885; J2250; J2405; J2704; J3010; J3490; J7120; J7502